=== PATIENT | male | born 1970 | race Two or more races ===

== ENCOUNTER 2022-09-25 11:00 | Inpatient (IN) | payer OTHER ==
[2022-09-25 11:37] VITALS: BMI 19.9
[2022-09-25] MEDS ORDERED: MAGNESIUM HYDROX 2400MG/30ML ORAL SUSPENSION 30 ML CUP PO PRN (13:10)
[2022-09-25] MEDS ORDERED: BISMUTH SUBSALICYLATE 262 MG/15 ML BTL PO PRN (13:10)
[2022-09-25] MEDS ORDERED: ACETAMINOPHEN 325 MG TABLET (FP) PO PRN (13:10)
[2022-09-25] MEDS ORDERED: ONDANSETRON *ODT* 4 MG TABLET SL PRN (13:10)
[2022-09-25] MEDS ORDERED: LOPERAMIDE HCL 2 MG CAPSULE PO PRN (13:10)
[2022-09-25] MEDS ORDERED: POLYETHYLENE GLYCOL (HEALTHYLAX) 3350 17 GM PACKET PO PRN (13:10)
[2022-09-25] MEDS ORDERED: IBUPROFEN 400 MG TABLET (FP) PO PRN (13:10)
[2022-09-25] MEDS ORDERED: MAG HYDROX/AL HYDROX/SIMETH 30 ML UNIT-DOSE CUP PO PRN (13:10)
[2022-09-25] MEDS ORDERED: guaiFENesin 600 MG TABLET.ER (FP) PO PRN (13:10)
[2022-09-25] MEDS ORDERED: BENZOCAINE/MENTHOL (CHLORASEPTIC ) LOZENGE MM PRN (13:10)
[2022-09-25] MEDS ORDERED: DICYCLOMINE HCL 10 MG CAPSULE PO PRN (13:10)
[2022-09-25] MEDS ORDERED: BENZONATATE 200 MG CAPSULE PO PRN (13:10)
[2022-09-25] MEDS ORDERED: NALOXONE HCL 0.4 MG/ML VIAL IM PRN (13:10)
[2022-09-25] MEDS ORDERED: NALOXONE HCL (KLOXXADO) 8 MG SPRAY NS PRN (13:10)
[2022-09-25] MEDS ORDERED: IBUPROFEN 600 MG TABLET (FP) PO PRN (13:10)
[2022-09-25] MEDS ORDERED: PRENATAL VITAMINS W/ FOLIC ACID TABLET (FP) PO ONE (13:35)
[2022-09-25] MEDS: PRENATAL VITAMINS W/ FOLIC ACID TABLET (FP) PO SCH (13:44)
[2022-09-25] MEDS: hydrOXYzine PAMOATE 25 MG CAPSULE (FP) PO PRN ×2 (14:33→22:02)
[2022-09-25] MEDS: LOSARTAN POTASSIUM 50 MG TABLET PO SCH (15:28)
[2022-09-25] MEDS: HYDROCHLOROTHIAZIDE 25 MG TABLET (FP) PO SCH (15:28)
[2022-09-25] MEDS: INSULIN (NOVOLOG) ASPART 100 UNITS/ML 10ML VIAL SQ SCH (17:19)
[2022-09-25] MEDS: ATORVASTATIN CA 20 MG TABLET (FP) PO SCH (22:02)
[2022-09-25] MEDS: METHOCARBAMOL 500 MG TABLET PO PRN (22:02)
[2022-09-25] MEDS: THIAMINE HCL 100 MG TABLET (FP) PO SCH (22:02)
[2022-09-25] MEDS: INSULIN (LEVEMIR) 100 UNITS/ML UNITS SQ SCH (22:03)
[2022-09-25] MEDS: MELATONIN 5 MG TABLETS PO SCH (22:03)
[2022-09-26] MEDS: INSULIN (NOVOLOG) ASPART 100 UNITS/ML 10ML VIAL SQ SCH ×3 (07:47→17:42)
[2022-09-26] MEDS: PRENATAL VITAMINS W/ FOLIC ACID TABLET (FP) PO SCH (09:20)
[2022-09-26] MEDS: ASPIRIN 81 MG CHEWABLE TABLETS PO SCH (09:20)
[2022-09-26] MEDS: hydrOXYzine PAMOATE 25 MG CAPSULE (FP) PO PRN (09:20)
[2022-09-26] MEDS: HYDROCHLOROTHIAZIDE 25 MG TABLET (FP) PO SCH (09:20)
[2022-09-26] MEDS: METHOCARBAMOL 500 MG TABLET PO PRN (09:20)
[2022-09-26] MEDS: LOSARTAN POTASSIUM 50 MG TABLET PO SCH (09:20)
[2022-09-26] MEDS ORDERED: chlordiazePOXIDE HCL 25 MG CAPSULE PO PRN (09:22)
[2022-09-26] MEDS: chlordiazePOXIDE HCL 25 MG CAPSULE PO SCH ×3 (10:13→22:22)
[2022-09-26 11:04] LABS: HEMOGLOBIN 11.7 GM/dL (11.7-16.9); MCH 35.7 pg (25.7-33.7); MCHC 34.5 g/dl (32.0-35.9); MEAN CELL VOLUME 103.6 fl (80-96); MEAN PLT VOLUME 10.6 fl (7.5-11.1); PLATELET COUNT 67 10^3/uL (134-434); RBC 3.28 M/mm3 (4.00-5.60); RDW 14.3 % (11.9-15.9); WHITE BLOOD COUNT 5.1 K/mm3 (4.0-10.0)
[2022-09-26 11:19] LABS: POTASSIUM 3.3 mmol/L (3.5-5.1)
[2022-09-26] MEDS ORDERED: POTASSIUM CHLORIDE ORAL LIQUID 20 MEQ/15 ML PO ONE (11:22)
[2022-09-26 11:28] LABS: ALBUMIN 3.6 g/dl (3.4-5.0); BLOOD UREA NITROGEN 6.9 mg/dL (7-18)
[2022-09-26 11:29] LABS: CALCIUM 8.9 mg/dL (8.5-10.1)
[2022-09-26 11:31] LABS: CREATININE 0.8 mg/dL (0.55-1.3)
[2022-09-26 11:33] LABS: TOT PROT 7.9 g/dl (6.4-8.2)
[2022-09-26] MEDS: LACTULOSE 20 GM/30 ML UDC (FOR ORAL USE ONLY) PO SCH ×3 (13:17→22:21)
[2022-09-26] MEDS: MELATONIN 5 MG TABLETS PO SCH (22:21)
[2022-09-26] MEDS: POTASSIUM CHLORIDE ORAL LIQUID 20 MEQ/15 ML PO SCH (22:21)
[2022-09-26] MEDS: ATORVASTATIN CA 20 MG TABLET (FP) PO SCH (22:21)
[2022-09-26] MEDS: THIAMINE HCL 100 MG TABLET (FP) PO SCH (22:22)
[2022-09-26] MEDS: INSULIN (LEVEMIR) 100 UNITS/ML UNITS SQ SCH (22:24)
[2022-09-27] MEDS: chlordiazePOXIDE HCL 25 MG CAPSULE PO SCH ×4 (05:22→22:36)
[2022-09-27] MEDS: INSULIN (NOVOLOG) ASPART 100 UNITS/ML 10ML VIAL SQ SCH ×4 (06:02→17:56)
[2022-09-27] MEDS: LACTULOSE 20 GM/30 ML UDC (FOR ORAL USE ONLY) PO SCH ×4 (10:41→22:34)
[2022-09-27] MEDS: HYDROCHLOROTHIAZIDE 25 MG TABLET (FP) PO SCH (10:41)
[2022-09-27] MEDS: LOSARTAN POTASSIUM 50 MG TABLET PO SCH (10:41)
[2022-09-27] MEDS: POTASSIUM CHLORIDE ORAL LIQUID 20 MEQ/15 ML PO SCH ×2 (10:41→22:34)
[2022-09-27] MEDS: ASPIRIN 81 MG CHEWABLE TABLETS PO SCH (10:41)
[2022-09-27] MEDS: PRENATAL VITAMINS W/ FOLIC ACID TABLET (FP) PO SCH (10:42)
[2022-09-27 11:35] LABS: HEMATOCRIT 31.7 % (35.4-49); HEMOGLOBIN 10.5 GM/dL (11.7-16.9); MCH 35.2 pg (25.7-33.7); MCHC 33.2 g/dl (32.0-35.9); MEAN CELL VOLUME 105.8 fl (80-96); MEAN PLT VOLUME 10.3 fl (7.5-11.1); PLATELET COUNT 64 10^3/uL (134-434); RBC 2.99 M/mm3 (4.00-5.60); RDW 14.3 % (11.9-15.9); WHITE BLOOD COUNT 5.3 K/mm3 (4.0-10.0)
[2022-09-27 11:47] LABS: BLOOD UREA NITROGEN 19.2 mg/dL (7-18); CALCIUM 9.7 mg/dL (8.5-10.1)
[2022-09-27 11:50] LABS: CREATININE 0.6 mg/dL (0.55-1.3)
[2022-09-27 11:52] LABS: BILIRUBIN,TOTAL 2.2 mg/dL (0.2-1); TOT PROT 6.6 g/dl (6.4-8.2)
[2022-09-27] MEDS: THIAMINE HCL 100 MG TABLET (FP) PO SCH (22:35)
[2022-09-27] MEDS: ATORVASTATIN CA 20 MG TABLET (FP) PO SCH (22:35)
[2022-09-27] MEDS: MELATONIN 5 MG TABLETS PO SCH (22:35)
[2022-09-27] MEDS: INSULIN (LEVEMIR) 100 UNITS/ML UNITS SQ SCH (22:40)
[2022-09-27] MEDS: RIFAXIMIN 550 MG TABLET PO SCH (22:40)
[2022-09-28] MEDS: chlordiazePOXIDE HCL 25 MG CAPSULE PO SCH ×4 (05:23→23:12)
[2022-09-28] MEDS: INSULIN (NOVOLOG) ASPART 100 UNITS/ML 10ML VIAL SQ SCH ×3 (07:37→17:21)
[2022-09-28] MEDS: METHOCARBAMOL 500 MG TABLET PO PRN (10:08)
[2022-09-28] MEDS: PRENATAL VITAMINS W/ FOLIC ACID TABLET (FP) PO SCH (10:08)
[2022-09-28] MEDS: ASPIRIN 81 MG CHEWABLE TABLETS PO SCH (10:08)
[2022-09-28] MEDS: LOSARTAN POTASSIUM 50 MG TABLET PO SCH (10:08)
[2022-09-28] MEDS: hydrOXYzine PAMOATE 25 MG CAPSULE (FP) PO PRN (10:08)
[2022-09-28] MEDS: HYDROCHLOROTHIAZIDE 25 MG TABLET (FP) PO SCH (10:08)
[2022-09-28] MEDS: POTASSIUM CHLORIDE ORAL LIQUID 20 MEQ/15 ML PO SCH (10:08)
[2022-09-28] MEDS: RIFAXIMIN 550 MG TABLET PO SCH ×2 (10:09→23:09)
[2022-09-28] MEDS: LACTULOSE 20 GM/30 ML UDC (FOR ORAL USE ONLY) PO SCH ×4 (10:09→22:55)
[2022-09-28] MEDS: INSULIN (LEVEMIR) 100 UNITS/ML UNITS SQ SCH (10:55)
[2022-09-28] MEDS ORDERED: INSULIN (NOVOLOG) ASPART 100 UNITS/ML 10ML VIAL ONE (11:37)
[2022-09-28] MEDS: ATORVASTATIN CA 20 MG TABLET (FP) PO SCH (22:55)
[2022-09-28] MEDS: THIAMINE HCL 100 MG TABLET (FP) PO SCH (22:55)
[2022-09-28] MEDS: MELATONIN 5 MG TABLETS PO SCH (23:12)
[2022-09-29] MEDS ORDERED: chlordiazePOXIDE HCL 10 MG CAPSULE PO PRN
[2022-09-29] MEDS: chlordiazePOXIDE HCL 10 MG CAPSULE PO SCH ×4 (05:55→22:56)
[2022-09-29] MEDS: INSULIN (NOVOLOG) ASPART 100 UNITS/ML 10ML VIAL SQ SCH ×3 (07:12→17:24)
[2022-09-29] MEDS: HYDROCHLOROTHIAZIDE 25 MG TABLET (FP) PO SCH (10:09)
[2022-09-29] MEDS: PRENATAL VITAMINS W/ FOLIC ACID TABLET (FP) PO SCH (10:09)
[2022-09-29] MEDS: LOSARTAN POTASSIUM 50 MG TABLET PO SCH (10:09)
[2022-09-29] MEDS: ASPIRIN 81 MG CHEWABLE TABLETS PO SCH (10:09)
[2022-09-29] MEDS: LACTULOSE 20 GM/30 ML UDC (FOR ORAL USE ONLY) PO SCH ×4 (10:10→22:41)
[2022-09-29] MEDS: RIFAXIMIN 550 MG TABLET PO SCH ×2 (10:11→22:39)
[2022-09-29] MEDS: THIAMINE HCL 100 MG TABLET (FP) PO SCH (22:39)
[2022-09-29] MEDS: ATORVASTATIN CA 20 MG TABLET (FP) PO SCH (22:39)
[2022-09-29] MEDS: MELATONIN 5 MG TABLETS PO SCH (22:40)
[2022-09-29] MEDS: INSULIN (LEVEMIR) 100 UNITS/ML UNITS SQ SCH (22:41)
[2022-09-30] MEDS ORDERED: chlordiazePOXIDE HCL 10 MG CAPSULE PO SCH (05:00)
[2022-09-30 06:30] VITALS: PULSE 80
[2022-09-30] MEDS: INSULIN (NOVOLOG) ASPART 100 UNITS/ML 10ML VIAL SQ SCH ×2 (06:31→12:10)
[2022-09-30 09:53] VITALS: BP 80/40; RESP 18; TEMP 97.6
[2022-09-30] MEDS: HYDROCHLOROTHIAZIDE 25 MG TABLET (FP) PO SCH (10:34)
[2022-09-30] MEDS: LOSARTAN POTASSIUM 50 MG TABLET PO SCH (10:34)
[2022-09-30] MEDS ORDERED: PERMETHRIN 5% TOPICAL CREAM 60 GM TUBE TP ONE (11:00)
[2022-09-30] MEDS: LACTULOSE 20 GM/30 ML UDC (FOR ORAL USE ONLY) PO SCH ×2 (11:20→14:12)
[2022-09-30] MEDS: PRENATAL VITAMINS W/ FOLIC ACID TABLET (FP) PO SCH (11:20)
[2022-09-30] MEDS: ASPIRIN 81 MG CHEWABLE TABLETS PO SCH (11:20)
[2022-09-30] MEDS: RIFAXIMIN 550 MG TABLET PO SCH (11:21)
[2022-10-01] MEDS ORDERED: chlordiazePOXIDE HCL 10 MG CAPSULE PO ONE (05:00)
== END 2022-09-30 14:20 | disposition home or self-care (01) | DRG 775 ==
LOC: YASAS 11:00 → Y6N 14:01
PROVIDERS: ADMIT Allergy & Immunology; ATTEND Surgery
PROC: HZ2ZZZZ Detoxification Services for Substance Abuse Treatment (ICD-10-PCS; principal; 2022-09-25)
DX: F10.230 Alcohol dependence with withdrawal, uncomplicated (principal); F17.210 Nicotine dependence, cigarettes, uncomplicated; I10 Essential (primary) hypertension; E11.9 Type 2 diabetes mellitus without complications; E72.20 Disorder of urea cycle metabolism, unspecified; E87.6 Hypokalemia; R94.5 Abnormal results of liver function studies; W19.XXXA Unspecified fall, initial encounter; Y93.9 Activity, unspecified; Y92.239 Unspecified place in hospital as the place of occurrence of the external cause; Z79.4 Long term (current) use of insulin
CPT/HCPCS: 36415; 80053; 82140; 82962; 85027; 86780; 87635; 87811; 93005; 93010